=== PATIENT | female | born 1990 | race Hispanic/Latino ===

== ENCOUNTER 2018-09-03 15:08 | Emergency (ER) | payer MEDICAID, OTHER ==
[2018-09-03 16:47] LABS: APPEARANCE,URINE CLEAR (CLEAR); BILIRUBIN,URINE NEGATIVE (NEGATIVE); COLOR,URINE YELLOW (YELLOW); GLUCOSE, URINE (UA) NEGATIVE (NEGATIVE); KETONES,URINE NEGATIVE (NEGATIVE); LEUKOCYTE ESTERASE ,URINE TRACE (NEGATIVE); NITRATE,URINE NEGATIVE (NEGATIVE); OCCULT BLOOD,URINE TRACE-INTACT (NEGATIVE); PROTEIN,URINE NEGATIVE (NEGATIVE); UROBILINOGEN,URINE 0.2 mg/dL (0.2-1.0)
[2018-09-03 17:06] LABS: BACTERIA,URINE Rare /HPF (None Seen); MUCUS,URINE Many LPF (None Seen); SQUAMOUS EPITHELIAL CELL,UR 0-2 /HPF (0-2); WBC,URINE 0-1 /HPF (0-1)
== END 2018-09-03 17:48 | disposition home or self-care (01) ==
LOC: EDH 15:08
DX: O20.0 Threatened abortion (principal); Z3A.01 Less than 8 weeks gestation of pregnancy; Z72.0 Tobacco use; Z88.1 Allergy status to other antibiotic agents
CPT/HCPCS: 36415; 81001; 84702

== ENCOUNTER 2020-09-24 19:18 | Emergency (ER) | payer MEDICAID, OTHER ==
[~2020-09-24] VITALS: Ht 162.6 cm; Wt 67.1 kg
[2020-09-24] MEDS ORDERED: ONDANSETRON HCL 4 MG/2 ML VIAL IVP ONE (20:00)
[2020-09-24] MEDS ORDERED: LACTATED RINGERS 1000ML 1,000 ML IV ONE (20:00)
[2020-09-24 20:03] LABS: APPEARANCE,URINE Clear (CLEAR); BILIRUBIN,URINE Negative (NEGATIVE); COLOR,URINE Yellow (YELLOW); GLUCOSE, URINE (UA) Negative (NEGATIVE); KETONES,URINE Negative (NEGATIVE); LEUKOCYTE ESTERASE ,URINE Large (NEGATIVE); NITRATE,URINE Negative (NEGATIVE); OCCULT BLOOD,URINE Negative (NEGATIVE); PROTEIN,URINE Negative (NEGATIVE)
[2020-09-24 20:09] LABS: RBC,URINE 0-1 /HPF (0-1)
[2020-09-24 20:10] LABS: BACTERIA,URINE Rare /HPF (None Seen); SQUAMOUS EPITHELIAL CELL,UR Rare /HPF (0-2); TRANSITIONAL EPI CELLS,URINE Rare /HPF (None Seen); WBC,URINE 26-50 /HPF (0-1)
[2020-09-24 20:24] VITALS: BP 121/65
[2020-09-24 20:45] LABS: BASOPHILS % (AUTO) 0.2 % (0.0-5.0); EOSINOPHILS % (AUTO) 1.9 % (0.0-8.0); HEMATOCRIT 38.6 % (36-48); LYMPHOCYTES % (AUTO) 36.9 % (21.0-51.0); MEAN CORPUSCULAR HEMOGLOBIN 28.5 pg (27.0-33.0); MEAN CORPUSCULAR HGB CONC 32.6 g/dL (32.0-36.0); MEAN CORPUSCULAR VOLUME 87.3 fL (79-99); NEUTROPHILS % (AUTO) 54.8 % (40.0-77.0); PLATELET COUNT (AUTO) 227 K/uL (130-400); RED BLOOD CELL COUNT(AUTO) 4.42 MIL/uL (4.00-5.50); RED CELL DISTRIBUTION WIDTH 12.8 % (11.0-15.5); WHITE BLOOD COUNT (AUTO) 5.7 K/uL (4.8-10.8)
[2020-09-24] MEDS ORDERED: PHENAZOPYRIDINE HCL 200 MG TABLET PO STA (21:17)
[2020-09-24] MEDS ORDERED: LEVOFLOXACIN 500 MG TABLET PO STA (21:17)
[2020-09-24] MEDS ORDERED: KETOROLAC 30MG VIAL (30MG/ML) IV STA (21:48)
[2020-09-24] MEDS ORDERED: KETOROLAC 30MG VIAL (30MG/ML) ONE (21:49)
[2020-09-24] MEDS ORDERED: IBUP-2088 PO (22:02)
[2020-09-24] MEDS ORDERED: PHEN-847 PO (22:02)
[2020-09-24] MEDS ORDERED: CIPR-278 PO (22:02)
[2020-09-24 22:07] VITALS: BP 125/71
== END 2020-09-24 22:14 | disposition home or self-care (01) ==
LOC: EDH 19:18
DX: N39.0 Urinary tract infection, site not specified (principal)
CPT/HCPCS: 36415; 81001; 84703; 85025; 87088; 96374; 96375; 99284; J1885; J2405; J7120

== ENCOUNTER 2021-06-29 17:11 | Emergency (ER) | payer OTHER ==
[~2021-06-29] VITALS: Ht 162.6 cm; Wt 79.4 kg
[~2021-06-29 17:11] MED LIST: CIPR-278 PO; IBUP-2088 PO; PHEN-847 PO
[2021-06-29] MEDS ORDERED: PROMETHAZINE HCL 25 MG/ML 1ML AMPULE IM PRN (17:30)
[2021-06-29] MEDS ORDERED: 0.9%NACL 1000ML 1,000 ML IV SCH (17:30)
[2021-06-29] MEDS ORDERED: MAG/ALUM/SIMETH 30 ML UDCUP ONE (17:37)
[2021-06-29] MEDS ORDERED: FAMOTIDINE 20MG VIAL IV ONE ×2 (17:38→18:00)
[2021-06-29 17:39] LABS: APPEARANCE,URINE Clear (CLEAR); BILIRUBIN,URINE Negative (NEGATIVE); COLOR,URINE Yellow (YELLOW); GLUCOSE, URINE (UA) Negative (NEGATIVE); KETONES,URINE Trace mg/dL (NEGATIVE); LEUKOCYTE ESTERASE ,URINE Moderate (NEGATIVE); NITRATE,URINE Negative (NEGATIVE); OCCULT BLOOD,URINE Negative (NEGATIVE); PH,URINE 6.5 (5.0-8.0); PROTEIN,URINE Trace mg/dL (NEGATIVE)
[2021-06-29] MEDS ORDERED: 0.9%NACL 1000ML 1,000 ML IV ONE (17:39)
[2021-06-29 17:45] LABS: HCG,QUAL RESULT NEGATIVE (NEGATIVE)
[2021-06-29 17:48] LABS: AMPHET/METH SCREEN,URINE NEGATIVE (NEGATIVE); BARBITURATE SCREEN, URINE NEGATIVE (NEGATIVE); BENZODIAZEPINES SCREEN,URINE NEGATIVE (NEGATIVE); CANNABINOID SCREEN,URINE POSITIVE (NEGATIVE); COCAINE SCREEN,URINE NEGATIVE (NEGATIVE); OPIATE SCREEN,URINE NEGATIVE (NEGATIVE); PHENCYCLIDINE SCREEN,URINE NEGATIVE (NEGATIVE)
[2021-06-29 17:50] LABS: BACTERIA,URINE Few /HPF (None Seen); MUCUS,URINE Few LPF (None Seen); RBC,URINE 0-1 /HPF (0-1); SQUAMOUS EPITHELIAL CELL,UR Few /HPF (0-2)
[2021-06-29] MEDS ORDERED: MAG/ALUM/SIMETH 30 ML UDCUP PO ONE (18:00)
[2021-06-29] MEDS ORDERED: CEFTRIAXONE 1G VIAL IVP ONE (18:00)
[2021-06-29 18:01] LABS: BASOPHILS % (AUTO) 0.4 % (0.0-5.0); EOSINOPHILS % (AUTO) 2.8 % (0.0-8.0); HEMATOCRIT 38.1 % (36-48); LYMPHOCYTES % (AUTO) 44.5 % (21.0-51.0); MEAN CORPUSCULAR HGB CONC 32.8 g/dL (32.0-36.0); MEAN CORPUSCULAR VOLUME 85.2 fL (79-99); MONOCYTES % (AUTO) 5.8 % (3.0-13.0); NEUTROPHILS % (AUTO) 46.1 % (40.0-77.0); PLATELET COUNT (AUTO) 212 K/uL (130-400); RED BLOOD CELL COUNT(AUTO) 4.47 MIL/uL (4.00-5.50); RED CELL DISTRIBUTION WIDTH 12.3 % (11.0-15.5); WHITE BLOOD COUNT (AUTO) 7.7 K/uL (4.8-10.8)
[2021-06-29 18:12] LABS: CREATININE 0.8 mg/dL (0.5-1.5); POTASSIUM 3.8 mmol/L (3.5-5.1)
[2021-06-29 18:16] LABS: ALBUMIN 3.6 g/dL (3.5-5.0); BILIRUBIN,TOTAL 0.2 mg/dL (0.2-1.0)
[2021-06-29] MEDS ORDERED: ONDA4TAB10 PO (18:17)
[2021-06-29] MEDS ORDERED: MACR100 PO (18:17)
[2021-06-29 18:26] LABS: TOTAL PROTEIN, SERUM 7.5 g/dL (6.0-8.3)
[2021-06-29] MEDS ORDERED: NITROFURANTOIN MONOHYD/M-CRYST 100 MG CAPSULE PO ONE (18:30)
[2021-06-29 18:58] VITALS: BP 112/64
== END 2021-06-29 19:03 | disposition home or self-care (01) ==
LOC: EDH 17:11
DX: N39.0 Urinary tract infection, site not specified (principal); R11.2 Nausea with vomiting, unspecified; F12.10 Cannabis abuse, uncomplicated; Z88.1 Allergy status to other antibiotic agents; Z90.49 Acquired absence of other specified parts of digestive tract; Z79.1 Long term (current) use of non-steroidal anti-inflammatories (NSAID)
CPT/HCPCS: 36415; 80053; 80305; 81001; 81025; 83690; 85025; 87088; 96372; 96374; 99284; J0696; J2550; J3490; J7030

== ENCOUNTER 2022-02-11 19:07 | Emergency (ER) | payer OTHER ==
[~2022-02-11] VITALS: Ht 162.6 cm; Wt 87.1 kg
[~2022-02-11 19:07] MED LIST changes: +MACR100 PO; +ONDA4TAB10 PO
[2022-02-11 19:50] LABS: APPEARANCE,URINE CLEAR (CLEAR); BILIRUBIN,URINE NEGATIVE (NEGATIVE); COLOR,URINE YELLOW (YELLOW); GLUCOSE, URINE (UA) NEGATIVE (NEGATIVE); KETONES,URINE NEGATIVE (NEGATIVE); LEUKOCYTE ESTERASE ,URINE 75 Leu/uL (NEGATIVE); NITRATE,URINE NEGATIVE (NEGATIVE); OCCULT BLOOD,URINE MODERATE (NEGATIVE); PROTEIN,URINE 10 mg/dL (NEGATIVE); UROBILINOGEN,URINE 0.2 mg/dL (0.2-1.0)
[2022-02-11 19:50] LABS: BASOPHILS % (AUTO) 0.2 % (0.0-5.0); EOSINOPHILS % (AUTO) 5.4 % (0.0-8.0); HEMATOCRIT 40.7 % (36-48); LYMPHOCYTES % (AUTO) 47.6 % (21.0-51.0); MEAN CORPUSCULAR HGB CONC 32.9 g/dL (32.0-36.0); MEAN CORPUSCULAR VOLUME 82.1 fL (79-99); MONOCYTES % (AUTO) 6.5 % (3.0-13.0); NEUTROPHILS % (AUTO) 40.1 % (40.0-77.0); PLATELET COUNT (AUTO) 214 K/uL (130-400); RED BLOOD CELL COUNT(AUTO) 4.96 MIL/uL (4.00-5.50); RED CELL DISTRIBUTION WIDTH 12.6 % (11.0-15.5); WHITE BLOOD COUNT (AUTO) 4.6 K/uL (4.8-10.8)
[2022-02-11 19:53] LABS: HCG,QUALITATIVE URINE NEGATIVE (NEGATIVE)
[2022-02-11 20:00] LABS: BACTERIA,URINE RARE /HPF (None Seen); MUCUS,URINE RARE LPF (None Seen); SQUAMOUS EPITHELIAL CELL,UR RARE /HPF (0-2)
[2022-02-11] MEDS ORDERED: FAMOTIDINE 20MG VIAL IV ONE (20:00)
[2022-02-11] MEDS ORDERED: ONDANSETRON 4MG INJ IVP ONE (20:00)
[2022-02-11] MEDS ORDERED: 0.9%NACL 1000ML 1,000 ML IV ONE (20:00)
[2022-02-11 20:06] LABS: CREATININE 0.8 mg/dL (0.5-1.5); POTASSIUM 3.9 mmol/L (3.5-5.1)
[2022-02-11 20:11] LABS: ALBUMIN 3.6 g/dL (3.5-5.0); TOTAL PROTEIN, SERUM 7.5 g/dL (6.0-8.3)
[2022-02-11] MEDS ORDERED: ONDA4TAB10 PO (21:05)
[2022-02-11] MEDS ORDERED: IBUP-2070 PO (21:05)
[2022-02-11 21:10] VITALS: BP 129/83
== END 2022-02-11 21:14 | disposition home or self-care (01) ==
LOC: EDH 19:07
DX: J10.1 Influenza due to other identified influenza virus with other respiratory manifestations (principal); Z20.822 Contact with and (suspected) exposure to COVID-19; F41.9 Anxiety disorder, unspecified; F32.A Depression, unspecified; Z90.49 Acquired absence of other specified parts of digestive tract; Z98.890 Other specified postprocedural states; Z88.1 Allergy status to other antibiotic agents; Z79.899 Other long term (current) drug therapy
CPT/HCPCS: 99284; 96374; 71045; 87635; 96375; 80053; 83690; 85025; 87088; 87880; 87804 ×2; 81001; 81025; 36415; C9803; J3490; J7030; J2405